=== PATIENT | male | born 1970 | race Caucasian/White ===

== ENCOUNTER → 2016-11-12 | Outpatient (CLI) | payer OTHER ==
[~2016-11-12] MED LIST: PHN/100 PO
--- NOTE | 2016-11-13 16:47 | EEG Procedure Note ---
EEG Procedure Note Date of Service Nov 12, 2016. Start / End Times Start Time: 9:31 AM End Time: 9:52 AM Referring Physician Liza Morales History This is a 46-year-old male with reported epilepsy. EEG for further evaluation of epilepsy. Home medications include Lamictal and Dilantin Home Medication List Scheduled Phenytoin Sodium (Dilantin), 400 MG PO HS Description This is a 21 electrode EEG with a single channel dedicated to limited EKG. The electrodes were placed in accordance with the International 10-20 system. At the start of the recording the patient was in an awake state. Background was well organized and composed of symmetric mixed alpha and beta frequencies. There was a symmetric well-formed moderate amplitude 11-12 Hz posterior dominant rhythm that was reactive to eye opening and closure. Hyperventilation was not done. Intermittent photic stimulation at various frequencies produced no abnormalities. Drowsiness was indicated by slowing of the background rhythm and vertex waves. There was no stage II sleep transients. Interpretation This is a normal awake and drowsy routine EEG. There was no electrographic seizures or epileptiform discharges. Clinical Correlation A normal EEG does not rule out epilepsy if there is a strong clinical suspicion.
== END | disposition home or self-care (01) ==
LOC: C.NEUR 09:19
PROVIDERS: ATTEND Psychiatry & Neurology Neurology
DX: G40.909 Epilepsy, unspecified, not intractable, without status epilepticus (principal)

== ENCOUNTER → 2016-11-14 | Outpatient (CLI) | payer OTHER ==
[2016-11-14 12:31] LABS: BASO % 0.2 %; BASO ABS # 0.01 K/uL (0-0.2); COMPLETE YES; HEMATOCRIT 48.8 % (42-52); IG% 0.2 %; LYMPH % 27.2 %; LYMPH ABS # 1.77 K/uL (1.2-3.4); MEAN CELL VOLUME 93.3 fL (80-100); MEAN CORPUSCULAR HEMOGLOBIN 33.5 pg (25-34); MEAN CORPUSCULAR HGB CONC 35.9 g/dl (32-36); MONO % 6.8 %; NEUT % 63.6 %; PLATELET COUNT 183 K/uL (130-400); RED BLOOD COUNT 5.23 M/uL (4.7-6.1); WHITE BLOOD COUNT 6.51 K/uL (4.8-10.8)
[2016-11-14 13:11] LABS: ALT/SGPT 25 U/L (12-78); AST/SGOT 14 U/L (15-37); BLOOD UREA NITROGEN 10 mg/dl (7-18); BUN/CREATININE RATIO 10.7 (10-20); CALCIUM 8.8 mg/dl (8.5-10.1); CARBON DIOXIDE 24 mmol/L (21-32); CHLORIDE 110 mmol/L (98-107); CREATININE 0.95 mg/dl (0.60-1.40); GLUCOSE 99 mg/dl (70-99); POTASSIUM 4.1 mmol/L (3.5-5.1); SODIUM 140 mmol/L (136-145)
[2016-11-14 13:22] LABS: ALB/GLOB RATIO 1.2 (0.9-2); ALKALINE PHOSPHATASE 101 U/L (45-117); CHOLESTEROL 178 mg/dl (0-200); CHOLESTEROL/HDL RATIO 4.5; HDL CHOLESTEROL 40 mg/dl; LDL CHOLESTEROL CALCULATED 109 mg/dl; TRIGLYCERIDES 146 mg/dl (0-150); VERY LOW DENSITY LIPOPROT CALC 29 mg/dl
== END | disposition home or self-care (01) ==
LOC: C.LABBFT 11:12
PROVIDERS: ATTEND Internal Medicine
DX: G40.909 Epilepsy, unspecified, not intractable, without status epilepticus (principal); F10.10 Alcohol abuse, uncomplicated; Z13.220 Encounter for screening for lipoid disorders; Z51.81 Encounter for therapeutic drug level monitoring; Z79.899 Other long term (current) drug therapy

== ENCOUNTER → 2016-11-17 | Outpatient (CLI) | payer OTHER ==
--- NOTE | 2016-11-17 15:50 | DIAGNOSTIC IMAGING REPORT ---
MRI OF THE BRAIN WITHOUT IV CONTRAST CLINICAL HISTORY: Seizure. Epilepsy. COMPARISON STUDY: CT of the brain dated 11/23/2015. TECHNIQUE: MRI of the brain was performed utilizing various T1 and T2-weighted sequences in the axial, sagittal, and coronal planes. IV contrast was not administered for this examination. Examination is performed using the seizure protocol. FINDINGS: Brain parenchyma: There are mild to moderate patchy foci of T2 signal abnormality seen involving the subcortical and periventricular white matter. There is an irregular region of abnormal T2 signal identified involving the white matter and cortex in the left posterior parietal lobe. This is best seen on coronal FLAIR image #21 and the region measures at least 2.4 cm in length. This is T1 isointense, and no susceptibility artifact is seen on the gradient images in this region. There is no hemorrhage or mass effect. There is no restricted diffusion to suggest acute ischemia. A small chronic lacunar infarct is suggested in the right cerebellar hemisphere. No extra-axial fluid collection is seen. The cerebellar tonsils are normal in configuration. The hippocampi are normal and symmetric. Ventricles, sulci, and cisterns: Normal in configuration. Pituitary and sella: Unremarkable. Intracranial vasculature: Normal flow voids are maintained at the skull base. Orbits: Findings suggest remote fracture of the left lamina papyracea. Orbital contents are normal in appearance. Sinuses and mastoids: Clear. Calvarium: Unremarkable. Cervical cord: Partially visualized cervical spinal cord is normal in morphology and signal intensity. IMPRESSION: 1. There is no hemorrhage, mass effect, or evidence of acute ischemia. 2. There is an indeterminant focus of T2 signal abnormality centered in the left posterior parietal white matter which measures at least 2.4 cm and also involves the overlying cortex. This is of indeterminant etiology, and could represent the sequelae of a remote insult. A low-grade neoplasm could also have this appearance. Follow-up with a contrast-enhanced examination is recommended for further assessment. 3. There are numerous additional small patchy foci of T2 signal abnormality seen throughout the subcortical and periventricular white matter. This likely represents age advanced microangiopathic change. A developing process such as multiple sclerosis or infectious process such as Lyme disease could also this appearance. Clinical correlation will be essential Electronically signed by: Inocente Cohen M.D. 11/17/2016 3:48 PM Dictated Date/Time: 11/17/2016 3:38 PM
== END | disposition home or self-care (01) ==
PROVIDERS: ATTEND Psychiatry & Neurology Neurology
DX: G40.909 Epilepsy, unspecified, not intractable, without status epilepticus (principal); R90.82 White matter disease, unspecified

== ENCOUNTER → 2016-11-28 | Outpatient (CLI) | payer OTHER ==
[~2016-11-28] MED LIST changes: +GADAVIST IV PRN
--- NOTE | 2016-11-28 12:50 | DIAGNOSTIC IMAGING REPORT ---
BRAIN COMBO FOR SEIZURE CLINICAL HISTORY: 46 years-old Male presenting with epilepsy, alcohol. TECHNIQUE: Multisequence, multiplanar MR imaging of the brain was performed before and after the administration of intravenous contrast. IV contrast: 9.5 mL of Gadavist. COMPARISON: Noncontrast brain MR from 11/17/2016. FINDINGS: Normal midline sagittal structures. Ventricles and sulci normal in size. No mass effect or midline shift. Numerous scattered foci of T2/FLAIR hyperintensity throughout the subcortical white matter primarily in the frontoparietal region bilaterally. The number and extent of foci are unexpected given the patient's age. These lesions do not enhance. Overlying one of these foci in the left posterior temporal region is an area of T2 hyperintense microcystic foci involving the U fibers and subcortical white matter (series 6 images 13 and 14; series 4 image 200). The overlying ledesma matter is largely spared and not thickened. No abnormal regional sulcation. No effacement of the regional sulci. No restricted diffusion to suggest acute ischemia. No hemorrhage or extra-axial fluid collection. T2 skull base flow voids preserved. Paranasal sinuses and mastoid air cells grossly clear. IMPRESSION: 1. Focal abnormality in the posterior left temporal region is not convincing for focal cortical dysplasia. Given the additional presence of multifocal white matter abnormalities unexpected for the patient's age, this could represent a juxtacortical lesion in the setting of demyelinating disease. Other etiologies including low-grade glioma cannot be excluded. The absence of enhancement suggests against an active inflammatory infectious etiology such as acute disseminated encephalomyelitis. Continued imaging follow-up is warranted. Electronically signed by: Piter Echevarria M.D. 11/28/2016 12:49 PM Dictated Date/Time: 11/28/2016 12:30 PM
== END | disposition home or self-care (01) ==
LOC: C.MRIBC 11:34
PROVIDERS: ATTEND Psychiatry & Neurology Neurology
DX: G40.909 Epilepsy, unspecified, not intractable, without status epilepticus (principal)

== ENCOUNTER → 2016-12-10 | Outpatient (CLI) | payer OTHER ==
[~2016-12-10] MED LIST changes: -GADAVIST IV PRN
== END | disposition home or self-care (01) ==
LOC: C.PATHSPEC 10:31
PROVIDERS: ATTEND Plastic Surgery
DX: L72.0 Epidermal cyst (principal)

== ENCOUNTER → 2017-03-24 | Outpatient (CLI) | payer OTHER ==
--- NOTE | 2017-03-24 10:13 | DIAGNOSTIC IMAGING REPORT ---
CHEST 2 VIEWS ROUTINE HISTORY: Cough. COMPARISON: Chest 12/11/2010. FINDINGS: The heart is normal in size. No pleural effusions. No pneumothorax. Mild diffuse residual thickening which appears chronic. There is a millimeters nodule within the right lower lobe. No new focal lung consolidations. Stable chronic changes within the distal left clavicle. This is likely due to an old injury. IMPRESSION: 1. No new focal lung consolidations. 2. A possible 8 mm nodule within the right lower lobe. Recommend dedicated chest CT for further evaluation. 2. Mild diffuse interstitial thickening which remains unchanged. Therefore, this likely chronic. Electronically signed by: Yeison Ledezma M.D. 03/24/2017 10:12 AM Dictated Date/Time: 03/24/2017 10:02 AM
== END | disposition home or self-care (01) ==
LOC: C.RAD1850 09:53
PROVIDERS: ATTEND Internal Medicine
DX: R05 Cough (principal)

== ENCOUNTER → 2017-03-30 | Outpatient (CLI) | payer OTHER ==
--- NOTE | 2017-03-30 11:12 | DIAGNOSTIC IMAGING REPORT ---
(CHEST) THORAX WITHOUT CT DOSE: 494.69 mGy.cm HISTORY: R91.1 Lung nodule, solitary [id number] TECHNIQUE: Multiaxial CT images of the chest were performed without contrast. A dose lowering technique was utilized adhering to the principles of ALARA. COMPARISON: Chest 03/24/2017. FINDINGS: The central airways are patent. No pleural effusions. No pneumothorax. A 3 mm subpleural nodule within the base of the left lower lobe on image 207. A 3 mm subpleural nodule within the right lower lobe on image 209. Multiple calcified right hilar lymph nodes and a calcified granuloma seen within the right lower lobe. This granuloma likely corresponds to the chest x-ray abnormality. No mediastinal or hilar lymphadenopathy. A few scattered punctate calcified granuloma seen within the liver and spleen. The heart is normal in size. Aneurysmal dilatation of the ascending thoracic aorta which measures up to 4.5 centers in diameter at the level of the main pulmonary artery. IMPRESSION: 1. Calcified granuloma within the right lower lobe which corresponds to the chest x-ray abnormality. This is considered be benign. 2. Aneurysmal dilatation of the ascending thoracic aorta which measures up to 4.5 cm in diameter. Follow-up is recommended to ensure stability. 3. A total of 2, 3 mm subpleural nodules within the lower lobes. Please refer to the chart below for recommended follow-up. Please refer to below summary of Fleischner criteria recommendations for follow-up of incidental CT nodules (Ankur Felix, Guidelines for management of small pulmonary nodules detected on CT scans: A statement from the Fleischner Society, Radiology 237: [phone].) SOLID NODULES Solitary nodule size: <6 mm * Low risk patients: no follow-up needed * high risk patients: optional CT at 12 months Solitary nodule size: 6-8 mm * Low risk patients: follow-up at 6-12 months, then consider further follow-up at 18-24 months * high risk patients: initial follow-up CT at 6-12 months and then at 18-24 months if no change Solitary nodule size: >8 mm * either low or high risk patients - consider follow-up CT at 3 months, and/or CT-PET, and/or biopsy Multiple nodules size: <6 mm * Low risk patients: no routine follow-up * high risk patients: optional CT at 12 months Multiple nodules size: 6-8 mm * Low risk patients: follow-up at 3-6 months, then consider further follow-up at 18-24 months * high risk patients: follow-up at 3-6 months, then at 18-24 months if no change Multiple nodules size: >8 mm * Low risk patients: follow-up at 3-6 months, then consider further follow-up at 18-24 months * high risk patients: follow-up at 3-6 months, then at 18-24 months if no change Note: newly detected indeterminate nodule in persons 35 years of age or older. * Low risk patients: minimal or absent history of smoking and/or other known risk factors * high risk patients: history of smoking or of other known risk factors (e.g. first degree relative with lung cancer, or exposure to asbestos, radon, uranium) * if a nodule up to 8 mm is partly solid or is ground glass further follow-up is required after 24 months to exclude possible slow growing adenocarcinoma (TOÑO) SUBSOLID NODULES Solitary pure ground-glass nodule * nodule size <6 mm - no CT follow-up required * nodule size >=6 mm - follow-up CT at 6-12 months, then every 2 years until 5 years Solitary part-solid nodule * nodule size <6 mm - no CT follow-up required * nodule size >=6 mm - follow-up CT at 3-6 months. If unchanged, and solid component remains <6 mm, then annual follow-up for 5 years Multiple subsolid nodules * nodule size <6 mm - follow-up CT at 3-6 months, consider further follow-up at 2 and 4 years if stable * nodule size >=6 mm - follow-up CT at 3-6 months, subsequent management based on the most suspicious nodule(s) Electronically signed by: Yeison Ledezma M.D. 03/30/2017 11:10 AM Dictated Date/Time: 03/30/2017 11:02 AM
== END | disposition home or self-care (01) ==
LOC: C.CTS 10:28
PROVIDERS: ATTEND Internal Medicine
DX: R91.8 Other nonspecific abnormal finding of lung field (principal); I71.2 Thoracic aortic aneurysm, without rupture

== ENCOUNTER → 2017-05-26 | Outpatient (CLI) | payer OTHER ==
[~2017-05-26] MED LIST changes: +GADAVIST IV PRN
--- NOTE | 2017-05-26 16:23 | DIAGNOSTIC IMAGING REPORT ---
MRI OF THE BRAIN WITHOUT AND WITH IV CONTRAST CLINICAL HISTORY: G40.909 EpilepsyF/U ABNORMAL MRI IN MAY/JUN COMPARISON STUDY: 11/28/2016 TECHNIQUE: MRI of the brain was performed from the vertex to the skull base utilizing various T1 and T2 weighted sequences. Following the IV administration of 9.7 mL of Gadavist contrast, additional enhanced images were obtained. FINDINGS: Sagittal T1, axial diffusion, proton density and T2 weighted axial, coronal FLAIR, and pre and post axial T1-weighted images were acquired. These were supplemented with post gadolinium coronal T1 weighted images. No intra or extra-axial mass lesions are visualized. Axial diffusion-weighted images reveal no evidence of acute or subacute infarction. There is no evidence of ventricular dilatation. Proton density T2-weighted and FLAIR images reveal stable scattered foci of increased T2 signal within the white matter. Addition there is a more confluent focus of increased T2 and FLAIR signal within the left posterior temporal region involving the subcortical white matter. There is no pathologic enhancement. There are no abnormal flow voids. There is no evidence of pathologic enhancement. IMPRESSION: 1. No significant change from the preceding study 2. Stable scattered foci of increased T2 signal within the white matter 3. Stable more focal area of increased T2 and FLAIR signal within the left posterior temporal lobe measuring approximately 2 cm. This involves the subcortical white matter. There is no pathologic enhancement. 4. No evidence of acute or subacute infarction Electronically signed by: Pilo Araujo M.D. 05/26/2017 4:22 PM Dictated Date/Time: 05/26/2017 4:15 PM
== END | disposition home or self-care (01) ==
LOC: C.MRI 15:06
PROVIDERS: ATTEND Psychiatry & Neurology Neurology
DX: G40.909 Epilepsy, unspecified, not intractable, without status epilepticus (principal); R90.82 White matter disease, unspecified